=== PATIENT | female | born 1985 | race African-American/Black ===

== ENCOUNTER 2017-12-24 21:27 | Emergency (ER) | payer OTHER ==
[~2017-12-24] VITALS: Ht 157.5 cm; Wt 57.6 kg
[~2017-12-24 21:27] MED LIST: DOXYCYCLINE 10100 MG PO; FLAGYL500 MG PO; FLONASE 0.05%50 MCG NASAL; IBUPROFEN 600600 M1 PO; NOHOMEMEDICATIONS; NORCO 5-325 TA1 EACH PO; PATANOL5 ML OPHTHALMIC; ZPAK PO
[2017-12-24 23:02] LABS: URINE BILIRUBIN NEGATIVE (Negative); URINE BLOOD NEGATIVE (Negative); URINE CLARITY SL CLOUDY; URINE COLOR YELLOW; URINE GLUCOSE-RANDOM* NEGATIVE (Negative); URINE KETONES NEGATIVE (Negative); URINE LEUKOCYTES-REFLEX NEGATIVE (Negative); URINE NITRITE-REFLEX NEGATIVE (Negative); URINE PROTEIN (DIPSTICK) NEGATIVE (Negative); URINE SPECIFIC GRAVITY 1.025 (1.005-1.035)
[2017-12-24 23:04] LABS: ABSOLUTE NEUTROPHILS 6.5 thou/uL (1.4-8.2); BASOPHILS 0.5 % (0.0-2.0); EOSINOPHILS 1.6 % (0.0-3.0); HEMATOCRIT 40.4 % (37.0-47.0); HEMOGLOBIN 13.6 gm/dL (12.0-15.0); LYMPHOCYTES 28.7 % (24.0-44.0); MCH 30.7 pg (26.0-34.0); MCHC 33.8 g/dL (28.0-37.0); MCV 90.8 fL (80.0-100.0); MONOCYTES 7.3 % (1.0-8.0); PLATELET COUNT 331 thou/uL (150-400); POLYS 61.9 % (36.0-66.0); RBC 4.44 mil/uL (4.20-5.00); RDW 13.8 % (10.5-14.5); WBC 10.5 thou/uL (4.0-11.0)
[2017-12-24 23:08] LABS: CALCIUM 8.8 mg/dL (8.5-10.1); CREATININE 0.8 mg/dL (0.6-1.0); POTASSIUM 3.7 mmol/L (3.5-5.1)
[2017-12-24 23:16] LABS: ALBUMIN 4.1 g/dL (3.4-5.0); TOTAL BILIRUBIN 0.3 mg/dL (<0.1-1.0); TOTAL PROTEIN 8.1 g/dL (6.4-8.2)
[2017-12-24 23:45] VITALS: BP 103/58
== END 2017-12-24 23:50 | disposition home or self-care (01) ==
LOC: ER 21:27
PROVIDERS: Emergency Medicine
DX: Z32.01 Encounter for pregnancy test, result positive (principal); Z88.8 Allergy status to other drugs, medicaments and biological substances; R11.0 Nausea